=== PATIENT | male | born 1975 | race Caucasian/White ===

== ENCOUNTER 2021-10-06 12:11 | Day surgery (SDC) | payer OTHER ==
--- NOTE | 2021-10-03 09:08 | P.HPOR ---
History of Present Illness H&P Date: 10/03/21 Chief Complaint: Right middle finger flexor tendon laceration Subjective: This is a 46 year old male that presents today for initial evaluation regarding a right middle finger injury that happened at work on 09/28/21 when sharp piece of sheet metal slipped through is hands and cut the distal volar portion of his right middle finger. He was seen at [facility] where the wound was irrigated and loosely closed. He has been on antibiotics since his injury. He denies any paresthesias. Physical Examination: RUE: AIN/PIN/Radial/Ulnar/Median motor intact. Radial/Ulnar/Median SILT. 2+/4 Radial/Ulnar pulses palpated. 5/5 APB, 5/5 FDI. Negative Finkelsteins, negative CMC grind, negative Durkan's compression. RMF PIP joint flexion intact. Unable to actively flex DIP joint of digit. SILT at tip of finger distal to incision. 2cm transverse laceration present with nylon suture intact at DIP joint crease volarly. Imaging: X-Rays of the right hand were reviewed from [facility] which reveal no acute fracture, chronic healed 5th metacarpal neck fracture appreciated. Impression: 1.) Right zone 1 FDP flexor tendon laceration, right middle finger. Plan: Diagnosis and treatment options were discussed with the patient. He has findings concerning for Zone 1 FDP injury to his right middle finger and I suggest surgical intervention. Risks and benefits of surgery including bleeding, infection, damage to surrounding tissue, need for further surgery, residual numbness, stiffness and need for hand therapy after were discussed and the patient wished to go forward with surgery. Labs are ordered. He is scheduled for a right middle finger flexor tendon laceration repair with possible digital nerve repair within the next week. He is to be non-weight bearing of this hand and is to keep his splint clean dry and intact. Note to be off of work up to surgery followed by 6 to 8 weeks post operatively. -Reji Gilliam DO Orthopedic Hand/Upper Extremity Surgeon Physical Examination Osteopathic Statement: *. No significant issues noted on an osteopathic structural exam other than those noted in the History and Physical/Consult.
[~2021-10-06 12:11] MED LIST: DEXAMETHASONE SOD PHOSPHATE 4 MG/ML 1 ML VIAL IV ONE; HYDROmorphone 0.5 MG/0.5 ML SYRINGE IVP PRN; LACTATED RINGERS 1,000 ML IV SCH; fentaNYL (PF) 50 MCG/ML 2 ML AMP IV PRN
[2021-10-06] MEDS ORDERED: LACTATED RINGERS 1,000 ML IV SCH (12:55)
[2021-10-06] MEDS ORDERED: LIDOCAINE 1% (10MG/ML) FOR IV START INTRADERMA PRN (12:55)
[2021-10-06] MEDS ORDERED: DEXAMETHASONE SOD PHOSPHATE 4 MG/ML 1 ML VIAL IV ONE (12:55)
[2021-10-06] MEDS ORDERED: HYDROmorphone 0.5 MG/0.5 ML SYRINGE IVP PRN (12:55)
[2021-10-06] MEDS ORDERED: ONDANSETRON 4 MG/2 ML VIAL IVP ONE (12:55)
[2021-10-06] MEDS ORDERED: METOCLOPRAMIDE 5 MG/ML 2 ML VIAL IVP PRN (12:55)
[2021-10-06] MEDS ORDERED: KETAMINE 10 MG/ML 20 ML VIAL ONE (13:21)
[2021-10-06] MEDS ORDERED: HYDROmorphone (PF) 1 MG/ML ONE (13:21)
[2021-10-06] MEDS ORDERED: fentaNYL (PF) 50 MCG/ML 2 ML AMP ONE (13:21)
[2021-10-06] MEDS ORDERED: MIDAZOLAM 2 MG/2 ML VIAL ONE (13:21)
[2021-10-06] MEDS ORDERED: LIDOCAINE 2% INJ 20 MG/ML (2 ML VIAL) ONE (13:21)
[2021-10-06] MEDS ORDERED: PROPOFOL 10 MG/ML 20 ML VIAL IV ONE (13:21)
[2021-10-06] MEDS ORDERED: BUPIVACAINE (PF) 0.5% 30 ML VIAL SQ ONE ×2 (13:55→14:49)
[2021-10-06 15:14] VITALS: TEMP 97.5
[2021-10-06 15:18] VITALS: RESP 16
[2021-10-06 16:57] VITALS: BP 108/74; PULSE 67
--- NOTE | 2021-10-06 19:25 | P.OP ---
Date of Procedure: 10/06/21 Preoperative Diagnosis: 1.) Right middle finger zone 1 FDP flexor tendon laceration Postoperative Diagnosis: 1.) Right middle finger zone 1 FDP flexor tendon laceration Procedure(s) Performed: 1.) Right middle finger zone 1 FDP profundus tendon advancement with intact sublimus;primary. (02536) Implants: Arthrex antonio Corkscrew FT suture anchor x 2 Anesthesia: GETA Surgeon: Reji Gilliam Estimated Blood Loss (ml): 10 Pathology: none sent Condition: stable Disposition: PACU Description of Procedure: This is a 46 year old male who presents today for surgical intervention for a right middle finger zone 1 flexor tendon laceration. Risks and benefits of s urgery were discussed with the patient including bleeding, damage to surrounding tissue, infection, need for further surgery as well as risks of anesthesia including pulmonary embolism and even and the patient wished to proceed with surgical intervention. The patient was seen in the pre-operative area by myself. Consent and H&P were completed and updated. The correct extremity was marked in the pre-operative area by myself and all other questions were answered. Operative Narrative: The patient was brought to the operating room by the department of anesthesia. They remained on the portable stretcher and a rolling hand table was brought to the side of the operative extremity. Pre-operative time out was performed indicating the correct patient, procedure and laterality. All in the room agreed. Pre-operative antibiotics were given prior to skin incision. The patient was then drifted off to sleep by the department of anesthesia. A nonsterile tourniquet was then applied to the operative extremity and the right upper extremity was then prepped and draped in normal sterile fashion. The operative extremity was the exsanguinated with an esmarch bandage and the tourniquet was inflated to 250mmHg. Previous sutures were taken out, the transverse laceration at the volar DIP joint crease was extended proximally and distally in a Keegan type fashion. Bl unt dissection was taken down through subcutaneous tissues taking care to protect terminal branches of the radial and ulnar digital nerves. There was a complete FDP laceration at the level distal to the DIP joint with only 3-5mm left of thin FDP stump remaining. Curved hemostat was used to enter the flexor tendon sheath at the level of the A5 mia and the proximal FDP stump was retrieved and held temporarily with a 22G needle. There was not enough tendon length distally to perform a direct repair therefor decision was made to proceed with FDP advancement with suture anchor fixation while incorporating the distal stump into the repair. An arthrex guide pin for the antonio Corkscrew FT suture anchor was inserted into the radial and ulnar portions of the distal phalanx to the level of the first laser line. Correct extra-articular placement was appreciated on mini C-arm and the dorsal cortex was not punctured with the guide pin. Guide pin was then removed and 2 Arthrex Antonio Corkscrew FT suture anchors were inserted into the volar aspect of the distal phalanx with excellent purchase. Correct placement was appreciated on fluoroscopy after insertion. The double armed 3-0 Fiberwire tapered needles were then taken from both suture anchors and passed through the remaining distal stump on the radial and ulnar portions. The 3-0 Fiberwire was then inserted as a core suture to approximate the proximal stump to the distal stump while bring the proximal stump down to bone. The core sutures were then tied in a horizontal mattress fashion creating a 4 core strand repair. The finger was then ranged and suture ends were cut. No appreciable gapping was present and the FDP was anatomically reduced to the FDP footprint and normal finger cascade was appreciated. The wound was then irrigated and skin closure was performed with 4-0 nylon suture. 7cc's of 0.5% bupivicaine was then used to perform a digital block. Sterile dressing was applied including adaptic, 4x4s, webril and a plaster dorsal blocking splint. Tourniquet was let down and the digit had immediate perfusion. The patient was then woken by the department of anesthesia and transferred to PACU in stable condition. Reji Gilliam D.O. Orthopedic Hand/Upper Extremity Surgeon
== END 2021-10-06 17:06 | disposition home or self-care (01) ==
LOC: OR 12:11
PROVIDERS: ATTEND Orthopaedic Surgery Hand Surgery
DX: S66.102A Unspecified injury of flexor muscle, fascia and tendon of right middle finger at wrist and hand level, initial encounter (principal); W26.8XXA Contact with other sharp object(s), not elsewhere classified, initial encounter; Y99.0 Civilian activity done for income or pay; Z87.891 Personal history of nicotine dependence
CPT/HCPCS: 26350; C1713; J2250; J1100; J0690; J2405; J3010; J1170; J2704; J2001